=== PATIENT | female | born 1975 | race Caucasian/White ===

== ENCOUNTER 2019-09-14 12:04 | Emergency (ER) | payer OTHER ==
[~2019-09-14] VITALS: Ht 167.6 cm; Wt 72.6 kg
[2019-09-14 12:04] VITALS: BP 152/83
--- NOTE | 2019-09-14 12:04 | NUR ---
Pt placed in bed 11 by EMS.
--- NOTE | 2019-09-14 12:10 | NUR ---
44/F tracy from her place of employment for evaluation of dizziness and nausea that started today while at work. Patient c/o headache. Patient works as a physcial therapist and states during work she felt a sudden onset of vertigo and severe nausea. Denies vomiting. Patient also states she was sick last week with fever, chills and headache. Pt was tested for covid and received negative results on Tuesday. Pt went to urgent care on Tuesday and was dx with UTI, currently on ABX for UTI.
--- NOTE | 2019-09-14 12:22 | NUR ---
parts counterperson- Saad: [phone]
--- NOTE | 2019-09-14 12:37 | NUR ---
Pt report given to Ayaan BOONE. Transfer of care at this time.
--- NOTE | 2019-09-14 12:47 | NUR ---
Patient being evaluated by physician at bedside.
[2019-09-14] MEDS ORDERED: ACETAMINOPHEN EXTRA STRENGTH 500 MG TAB PO ONE (12:50)
[2019-09-14] MEDS ORDERED: NACL 0.9% 1,000 ML IV ONE (12:50)
--- NOTE | 2019-09-14 13:11 | NUR ---
Patient returned from CT scan/x-ray. RN reevaluating patient at bedside.
[2019-09-14 13:44] LABS: BASOPHILS # (AUTO) 0.1 K/uL (0.00-0.22); BASOPHILS % (AUTO) 0.9 % (0.0-2.0); EOSINOPHILS % (AUTO) 0.2 % (0.0-4.0); HEMATOCRIT 40.4 % (36-48); HEMOGLOBIN 13.3 g/dL (12.0-16.0); LYMPHOCYTES # (AUTO) 2.3 K/uL (2.5-16.5); LYMPHOCYTES % (AUTO) 19.5 % (20.5-51.1); MEAN CORPUSCULAR HEMOGLOBIN 32 pg (27-31); MEAN CORPUSCULAR HGB CONC 33 g/dL (33-37); MEAN CORPUSCULAR VOLUME 96.7 fL (80-94); MONOCYTES # (AUTO) 0.1 K/uL (0.8-1.0); MONOCYTES % (AUTO) 0.5 % (1.7-9.3); NEUTROPHILS # (AUTO) 9.1 K/uL (1.8-7.7); NEUTROPHILS % (AUTO) 78.9 % (42.2-75.2); PLATELET COUNT (AUTO) 364 K/uL (140-450); RED BLOOD CELL COUNT(AUTO) 4.18 MIL/uL (4.20-5.40); RED CELL DISTRIBUTION WIDTH 13.6 % (11.6-13.7); WHITE BLOOD COUNT (AUTO) 11.5 K/uL (4.8-10.8)
[2019-09-14 13:46] LABS: APPEARANCE,URINE CLOUDY (CLEAR); BILIRUBIN,URINE NEGATIVE (NEGATIVE); BLOOD, URINE NEGATIVE (NEGATIVE); COLOR,URINE YELLOW (YELLOW); LEUKOCYTE ESTERASE ,URINE NEGATIVE (NEGATIVE); NITRITE, URINE NEGATIVE (NEGATIVE); PH,URINE 6.5 (5.0-9.0); UGLUCOSE NEGATIVE (NEGATIVE)
[2019-09-14] MEDS ORDERED: KETOROLAC 15 MG/ML VIAL IVP ONE (14:20)
[2019-09-14 14:26] LABS: ALBUMIN 3.8 g/dL (3.4-5.0); ANION GAP 15.7 (8-16); CARBON DIOXIDE 25.2 mmol/L (21-32); CREATININE 0.8 mg/dL (0.6-1.3); FREE T4 (FREE THYROXINE) 1.07 ng/dL (0.76-1.46); POTASSIUM 3.9 mmol/L (3.5-5.1); THYROID STIMULATING HORMONE 4.26 uIU/mL (0.34-3.74); TOTAL BILIRUBIN 0.4 mg/dL (0.0-1.0)
[2019-09-14 15:51] VITALS: BP 115/75
== END 2019-09-14 15:53 | disposition home or self-care (01) ==
LOC: MED 12:04
DX: E86.0 Dehydration (principal); R51 Headache; R50.9 Fever, unspecified; E03.9 Hypothyroidism, unspecified
CPT/HCPCS: 36415; 70450; 71045; 80053; 81003; 81025; 84439; 84443; 85025; 96361; 96374; 99285; J1885; J7030; Q0092